=== PATIENT | female | born 1960 | race Caucasian/White ===

== ENCOUNTER → 2017-03-09 | Outpatient (CLI) | payer OTHER ==
[~2017-03-09] MED LIST: CIPR-255 PO; LISI-461 PO; ONDA4TAB7 SL
--- NOTE | 2017-03-10 12:10 | MAMMOGRAPHY REPORT ---
BILATERAL DIGITAL SCREENING MAMMOGRAM TOMOSYNTHESIS WITH CAD: 03/09/2017 CLINICAL HISTORY: Routine screening. Patient has no complaints. TECHNIQUE: Breast tomosynthesis in addition to standard 2D mammography was performed. Current study was also evaluated with a Computer Aided Detection (CAD) system. COMPARISON: Comparison is made to exams dated: 03/08/2016 mammogram, 03/04/2015 mammogram, 08/28/2013 ma mmogram, 08/17/2013 mammogram, 08/16/2012 mammogram - [facility], and 06/13/2009 ma mmogram. BREAST COMPOSITION: The tissue of both breasts is almost entirely fatty. FINDINGS: There are stable intramammary lymph nodes in each upper outer quadrant. No suspicious mass , architectural distortion or cluster of microcalcifications is seen. IMPRESSION: ACR BI-RADS CATEGORY 1: NEGATIVE There is no mammographic evidence of malignancy. A 1 year screening mammogram is recommended. The pa tient will receive written notification of the results. Approximately 10% of breast cancers are not detected with mammography. A negative mammographic report should not delay biopsy if a clinically suggestive mass is present. Nica Woodson M.D. ay/:03/09/2017 16:26:28 Area Coordinator: Anali SHARP(Lauryn)(Sigifredo), [facility] letter sent: Normal 1/2 BI-RADS Code: ACR BI-RADS Category 1: Negative
== END | disposition home or self-care (01) ==
LOC: C.MAMM 13:41
PROVIDERS: ATTEND Family Medicine
DX: Z12.31 Encounter for screening mammogram for malignant neoplasm of breast (principal)

== ENCOUNTER → 2018-03-10 | Outpatient (CLI) | payer OTHER ==
--- NOTE | 2018-03-13 07:44 | MAMMOGRAPHY REPORT ---
BILATERAL DIGITAL SCREENING MAMMOGRAM TOMOSYNTHESIS WITH CAD: 03/10/2018 CLINICAL HISTORY: Routine screening. Patient has no complaints. TECHNIQUE: The study was acquired using full field digital technology and interpreted from soft copy. Breast tomosynthesis in addition to standard 2D mammography was performed. Current study was also ev aluated with a Computer Aided Detection (CAD) system. COMPARISON: Comparison is made to exams dated: 03/09/2017 mammogram, 03/08/2016 mammogram, 03/04/2015 m ammogram, 08/28/2013 mammogram, 08/17/2013 mammogram, and 08/16/2012 mammogram - [facility]. BREAST COMPOSITION: The tissue of both breasts is almost entirely fatty. FINDINGS: No suspicious masses, calcifications, or areas of architectural distortion are noted in either breast . There has been no significant interval change compared to prior exams. IMPRESSION: ACR BI-RADS CATEGORY 1: NEGATIVE There is no mammographic evidence of malignancy. A 1 year screening mammogram is recommended.( 019) The patient will receive written notification of the results. Some breast cancers are not detected with mammography. A negative mammographic report should not stacy y biopsy if a clinically suggestive mass is present. Ema Davis M.D. ah/:03/10/2018 13:29:09 Communications Professor: RT Marco(Lauryn)(M)(BD), [facility] letter sent: Normal 1/2 BI-RADS Code: ACR BI-RADS Category 1: Negative
== END | disposition home or self-care (01) ==
LOC: C.MAMM 12:20
PROVIDERS: ATTEND Family Medicine
DX: Z12.31 Encounter for screening mammogram for malignant neoplasm of breast (principal)

== ENCOUNTER 2025-07-31 07:07 | Observation (INO) ==
--- NOTE | 2025-06-27 10:03 | PAT Medication Instructions ---
Medication Instructions Date of Service June 27, 2025 Home Medications Medication Instructions Recorded levothyroxine 88 mcg tablet 88 mcg PO DAILY #90 tabs 04/13/23 diclofenac sodium 75 mg 75 mg PO BID #60 tabs 06/24/25 tablet,delayed release lisinopril 20 mg-hydrochlorothiazide 25 mg tablet (Zestoretic) 1 tab PO QAM levothyroxine 88 mcg tablet 88 mcg PO DAILY multivitamin 1 tab PO DAILY diclofenac sodium 75 mg tablet,delayed release 75 mg PO BID ASK your surgeon for instructions diclofenac sodium 75 mg tablet,delayed release 75 mg PO BID DO NOT take the morning of surgery lisinopril 20 mg-hydrochlorothiazide 25 mg tablet (Zestoretic) 1 tab PO QAM multivitamin 1 tab PO DAILY Take morning of surgery With a small sip of water, OTHERWISE NOTHING TO EAT OR DRINK AFTER MIDNIGHT: levothyroxine 88 mcg tablet 88 mcg PO DAILY Other Notes If you have any questions please call us at [phone] or [phone] or [phone] or [phone]
--- NOTE | 2025-07-08 14:22 | Anesthesiology Consultation ---
Date of Service July 08, 2025 Assessment & Plan (1) Encounter for pre-operative examination: Chart Review Chart Review: Acceptable Risk for Surgery and Patient seen in Pre Admission Testing - Patient is not an ideal OPJ candidate (currently 23 hour obs) Per PAT appt on 07/08/25, no recent illness/disease exposures, illness related symptoms, or recent illness/disease positive tests. Will leave to surgeon's discretion if preop Covid testing needed Teaching & Discussion Pre-Anesthesia Teaching/Discussion Notes: Instructed NPO after midnight before surgery,except medications with 15 cc of water. Medication instructions provided according to the [facility] guidelines. History Surgery Operation Date: 07/31/25 10:40 Proposed Procedures p Left Total Knee Arthroplasty - Prosper Alfaro MD Height/Weight Height: 5 ft 4 in Weight: 129.7 kg Allergies Allergy/AdvReac Type Severity Reaction Status Date / Time meperidine [From Demerol] Allergy Unknown Hives Verified 06/27/25 08:54 Medications Home Medications Medication Instructions Recorded Confirmed Last Taken lisinopril 20 1 tab PO QAM 05/21/20 06/27/25 Unknown mg-hydrochlorothiazide 25 mg tablet (Zestoretic) levothyroxine 88 mcg tablet 88 mcg PO DAILY #90 tabs 04/13/23 06/27/25 Unknown multivitamin 1 tab PO DAILY 04/13/23 06/27/25 Unknown diclofenac sodium 75 mg 75 mg PO BID #60 tabs 06/24/25 06/27/25 Unknown tablet,delayed release Past Medical History Medical History Arthralgia DJD (degenerative joint disease) History of COVID-19 (2020) resolved HTN (hypertension) Hypothyroidism Exercise / Class Metabolic Activity II 4-5 Yardwork/Stairs/Walk up hill (one flight of stairs - no chest pain or SOB ) Past Family History Family History Father Heart disease Myocardial infarction Grandmother (Maternal) Heart disease Grandfather (Maternal) Kidney disease Mother Cancer Hypertension Heart disease Aunt Breast cancer Brother Hypertension Myocardial infarction Past Surgical History Surgical History Ganglion cyst excision H/O knee surgery meniscus repair H/O: hysterectomy Patient had uterus removed, still has tubes and ovaries. Past Anesthesia History No Hx of Anesthesia Complications (with exception to PONV ) and No Family Hx of Anesthesia Complications History of PONV History of PONV (improved with scop patch with past surgeries ) and Hx of Motion Sickness Social History Smoking Status: Never smoker Do You Dip or Chew Tobacco: No Hx Alcohol Use: No Hx Substance Use: No substance use type: does not use Review of Systems Patient denies chest pain, shortness of breath, dyspnea on exertion, reflux, cough, wheezing, palpitations. No hx of seizures, stroke, PR, apnea/snoring. No hx of blood clots or blood transfusions Physical Exam Vital Signs VITALS BP 131/87 P 79 TEMP 98.1 SP02 95% on RA RESP 16 Constitutional no acute distress ENMT Mouth: + small oral opening; no TMJ clicking Thyromental Distance: > or= 3.5 Finger Breadths (3.5) Mallampati Class: IV Neck neck extension not limited Respiratory normal respiratory effort; no respiratory distress Auscultation: lungs clear to auscultation bilaterally; no wheezes Cardiovascular Rate/Rhythm: regular rate and regular rhythm Heart Sounds: no murmur Vessels: no carotid bruit Musculoskeletal Spine: no pain with cervical ROM Extremities: extremities normal to inspection Psychiatric Orientation: alert Lab Results Anesthesia Preop Results Results Anesthesia Widget: WBC 7.43 K/ul (4.8-10.8) 07/08/25 Hgb 14.2 g/dL (12.0-16.0) 07/08/25 Hct 42.0 % (37.0-47.0) 07/08/25 Plt 295 K/uL (130-400) 07/08/25 Na 139 mmol/L (136-145) 07/08/25 K 4.3 mmol/L (3.5-5.1) 07/08/25 Cl 102 mmol/L (98-107) 07/08/25 CO2 30 mmol/L (21-32) 07/08/25 BUN 21 mg/dl (6-23) 07/08/25 Creat 0.76 mg/dl (0.6-1.2) 07/08/25 Glucose Level 84 mg/dl (70-99(Fasting)) 07/08/25 PT 10.0 Seconds (9.0-12.0) 07/08/25 PTT 28 Seconds (21-31) 07/08/25 INR 0.9 (0.9-1.1) 07/08/25 Blood Type O Positive 07/08/25 Antibody Screen NEGATIVE 07/08/25 Testing Electrocardiogram Date: 07/08/25 Findings: + NSR @ (75bpm) Low voltage QRS When compared to EKG from January 10, 2012- no significant change was found per cardio Chest X-Ray Date: 07/08/25 Findings: + NAD FINDINGS: Stable mild cardiomegaly without pulmonary vascular congestion. No consolidation or pleural effusion.
--- NOTE | 2025-07-23 17:18 | History & Physical Report ---
Date of Service July 23, 2025 Assessment & Plan (1) Left knee DJD: 64-year-old female with multiple medical comorbidities including hypertension, obesity and hypothyroidism with advanced bilateral knee DJD left side more symptomatic than the right. She has failed conservative treatment like to have her left knee replaced. Plan: We are going to take her to the operating room and do a left knee replacement. Risks and benefits procedure explained. Informed consent was obtained. Will use aspirin for DVT prophylaxis. She is planning on using home health. (2) Right knee DJD: (3) Hypothyroidism: (4) Obesity: (5) Hypertension: History of Present Illness Chief Complaint: . Bilateral knee pain discomfort left side greater than the right. 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 She has long history of bilateral knee pain discomfort. She had a left knee scope done about 10 years ago. Over the years she developed increased pain discomfort that has been unresponsive conservative care more lately. Shots become less effective. There function is limited by her pain. She now looks to having her knees replaced.. Allergies Allergy/AdvReac Type Severity Reaction Status Date / Time meperidine [From Demerol] Allergy Unknown Hives Verified 06/27/25 08:54 Home Medications Medication Instructions Recorded Confirmed Type lisinopril 20 1 tab PO QAM 05/21/20 06/27/25 History mg-hydrochlorothiazide 25 mg tablet (Zestoretic) levothyroxine 88 mcg tablet 88 mcg PO DAILY #90 tabs 04/13/23 06/27/25 Rx multivitamin 1 tab PO DAILY 04/13/23 06/27/25 History diclofenac sodium 75 mg 75 mg PO BID #60 tabs 06/24/25 06/27/25 Rx tablet,delayed release Past Med/Surg History Problem List Encounter for pre-operative examination Arthralgia Right knee DJD Left knee DJD Hypothyroidism Obesity Hypertension Medical History DJD (degenerative joint disease) Arthralgia History of COVID-19 (2020) resolved Hypothyroidism HTN (hypertension) Surgical History H/O: hysterectomy Patient had uterus removed, still has tubes and ovaries. 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 Physical Exam . Physical examination reveals a pleasant middle-age female but looks in pretty good health. Examination of both knees reveal patient ambulates well little bit of a waddling gait. She does limp a little bit more on the left side than the right. Examination left knee reveals a varus alignment to her knee. Moderate soft tissue envelope. She is tender over the medial joint line. Range of motion is 5-1 20. No pain with hip motion. Examination the right knee reveals a similar varus deformity. Moderate soft tissue envelope. Minimal tenderness to palpation. Got a little bit of bony perching medially. Range of motion 5-1 25. No instability. No pain with hip motion. Constitutional WD/WN, vitals as above Respiratory normal respiratory effort, lungs clear to auscultation Cardiovascular RRR, no murmur, no edema Gastrointestinal (Abdomen) normal bowel sounds, soft, nontender, no hepatosplenomegaly Results & Data Results & Data Laboratory Results . Diagnostic Findings . X-rays of the left knee reviewed. She has advanced left knee DJD. She has got complete loss of medial joint space. She got subchondral sclerosis. She has got varus alignment to the knee. She got fairly similar deformity and arthritic change in the right knee as well. PG Care Time/CCT Total # of Minutes Spent Total Time Spent with Patient: Total time spent is greater than 50% in coordination of care (as documented) at patient's floor/unit and/or counseling patient: Coding Level of Care Code None Diagnoses Left knee DJD M17.12 Right knee DJD M17.11 Hypothyroidism E03.9 Obesity E66.9 Hypertension I10
[~2025-07-31 07:07] MED LIST changes: -CIPR-255 PO; -LISI-461 PO; -ONDA4TAB7 SL; +PROPOFOL IV EMULSION 10 MG/ML 100 ML VIAL IV ONE
[2025-07-31] MEDS ORDERED: BUPIVACAINE 0.5 % 5 MG/1 ML PF 10ML VIAL ONE (07:11)
[2025-07-31] MEDS ORDERED: ROPIVACAINE 0.5% 5 MG/ML 30 ML VIAL ONE (07:11)
[2025-07-31] MEDS ORDERED: LIDOCAINE 2% 2 ML VIAL/AMP(20MG/ML) INFIL ONE (07:13)
[2025-07-31] MEDS ORDERED: MIDAZOLAM HCL 1 MG/ML 2ML VIAL ONE (07:25)
[2025-07-31] MEDS: LR 500ML BOLUS, THEN 15ML/HR IV SCH (07:58)
[2025-07-31] MEDS: METOCLOPRAMIDE HCL 10 MG TABLET PO SCH (07:59)
[2025-07-31] MEDS: dexAMETHasone**PF** 10 MG/ML VIAL IV SCH (07:59)
[2025-07-31] MEDS: ACETAMINOPHEN 500 MG TAB PO SCH ×2 (07:59→14:09)
[2025-07-31] MEDS: CeleBREX 200 MG CAP PO SCH (07:59)
[2025-07-31] MEDS: FAMOTIDINE 20 MG TAB PO SCH (07:59)
[2025-07-31] MEDS: LR 60ML/HR IV SCH (08:00)
--- NOTE | 2025-07-31 08:53 | History & Physical Bridge Note ---
Date of Service July 31, 2025 History & Physical Bridge Note I have examined the patient, reviewed the History & Physical and in the interval since the performance of the History & Physical I have noted the following changes of clinical significance: no changes noted
[2025-07-31] MEDS: ceFAZolin 3000MG 3,000 MG/72.5 ML BAG IV SCH (09:24)
[2025-07-31] MEDS ORDERED: GLYCOPYRROLATE 0.2 MG/ML VIAL ONE (09:39)
[2025-07-31] MEDS: ROPIV 0.5% 246mg, Ketorolac 30mg, EPINEPHrine 0.5mg in NSS INFIL SCH (10:01)
[2025-07-31] MEDS: ORTHO JOINT ANESTHETIC ONE (10:02)
[2025-07-31] MEDS ORDERED: ePHEDrine sulfate 50 MG/5 ML SYR ONE (10:09)
[2025-07-31] MEDS ORDERED: ONDANSETRON INJ 2 MG/ML 2 ML VIAL ONE (10:55)
--- NOTE | 2025-07-31 11:17 | Operative Report ---
PG Post Operative Report Pre & Post Diagnosis Operation Date: 07/31/25 08:55 Pre-Op Diagnosis: Left Knee Osteoarthritis Post-Op Diagnosis: Left Knee Osteoarthritis I identified the patient and participated in the time-out.: Yes Procedure Operation Date: 07/31/25 08:55 Actual Procedures p Left Total Knee Arthroplasty, Cemented(Left) - Prosper Alfaro MD Surgeon Prosper Alfaro MD Edgerman Margarito Duarte PA-C Estimated Blood Loss 50 Findings Consistent with Post-Op Diagnosis Specimens Left knee send pathology Anesthesia Type Spinal MAC Complications none Disposition Accompanied Patient To Recovery: No Indications The patient is a 64-year-old female with a history of increasing left knee pain discomfort gradually got worse over time. She does have a history of a knee scope done about 10 years ago which provided temporary relief. That she been through extensive conservative treatment became less successful over time. She is now elected proceed with left total knee arthroplasty. Description of Procedure Operative implants consist of: 1 Biomet Vanguard size 62.5 left posterior stabilized femoral component. 2 Biomet size 67 tibial tray. 3. 10 mm posterior stabilized polyethylene insert. 4. 31 x 8 all poly patella. The patient was taken to the op room, identified, placed on the operating table in the supine position. All contact areas were appropriately padded. IV antibiotics were provided by anesthesia team. Spinal anesthetic and adductor canal block had been provided in the holding area. A Saha catheter was placed in sterile fashion to the left phytate was then placed. The left lower extremity was then prepped and draped in usual sterile fashion. The left leg was elevated and exsanguinated with use of an Esmarch and tourniquet placed at 300 mmHg. An anterior approach left knee was then performed to longitudinal incision centered over the patella. Sharp dissection was Through subcutaneous tissue down to the extensor mechanism. A medial parapatellar arthrotomy incision was made. Some subperiosteal dissection was carried out medially. The fat pad was dissected released patella tendon. Lateral patellofemoral ligament was released and the patella subluxate laterally. The osteophytes were taken off distal femur. The ACL and PCL were then released from distal femur and the tibia subluxate anteriorly. The external tibial LYMErix then placed on the interface the tibia and adjusted 14 mm medially. Proximal tibial cut was made remove about 2 mm of bone from the medial side. Some osteophytes were taken off medially. The tibia sized to a size 67. Attention then drawn the femur. The distal femur was then with a sharp drill. Intramedullary canal was suction. A left 5 degree valgus cutting guide was placed for the distal femoral cutting block was pinned in place. Distal femoral cut was made take an additional 3 mm of bone off distal femur. The femur was then sized to a size 62.5. The AP cutting block was pinned parallel to the epicondylar axis which was 5 degrees of external rotation. The anterior cut, anterior chamfer, posterior cut, posterior chamfer cuts were made. The box cutting guide was then placed in the just slightly lateral and the box cut was made. The knee was flexed. The remnants of the medial lateral menisci were excised. The osteophytes taken off the posterior aspect of femur. A trial femoral component was placed. The tibial tray was pinned in [place] external rotation and the drill and stem punch were used to create defect in the proximal tibia for the tibial tray. The knee was then trialed and the 10 mm insert fit most appropriately. Attention drawn to the patella. The patella was cleaned of all soft tissues. Patella thickness measured 19 mm in thickness was cut down to 13. Was sized to a size 31 patella. The lug holes were drilled for 31 patella. The lateral osteophytes removed. Patella button was placed. Knee was taken through range of motion patella tracked nicely with no thumbs test. Attention then drawn to placement permanent components. All trial components were removed. Bone plug was placed into distal femoral limb blood loss. Double batch Palacos G cement was mixed. Biomet Vanguard size 62.5 left posterior stabilized femoral component, size 67 tibial tray, a 10 mm pro stabilized polyethylene insert, and a 31 x 8 all poly patella then cemented in place. The knee was brought out into full extension till cement hardened. Final cement check was then performed. Pericapsular tissues were injected with total 100 cc of Ortho mix. The patient did receive 1 g tranexamic acid. The tourniquet was then let down for final tourniquet time was 61 minutes. Hemostasis assured use electrocautery. Extensor Meclomen closed with combination 1 PDS suture #1 Vicryl suture in a [id number] fashion. Extensor Meclomen checked found intact the subcutaneous tissue then closed with 2 Dexon suture in a buried interrupted fashion skin was closed skin nissa. Leg was then cleaned and dried and a sterile dressing with Xeroform, 4 fours, sterile cast padding, Syed bandage were applied. The patient was then transferred to the recovery room in stable condition. Patient tolerated procedure well and there are no complications. Margarito Duarte, my physician assistant attorney general, was present for the entire procedure. His assistance was essential and required for appropriate patient positioning, prepping and draping, surgical exposure, performing the technical details of the operation, placement the implants, closure of the wound, and placement of the sterile bandage. I attest to the content of the Intraoperative Record and any orders documented therein. Any exceptions are noted below.
--- NOTE | 2025-07-31 11:29 | XRay Report ---
XR knee LT 1 or 2V routine CLINICAL HISTORY: Postoperative evaluation. COMPARISON: Left knee radiographs June 10, 2025. FINDINGS: Alignment of the total left knee arthroplasty is anatomic. There is no periprosthetic frac ture or unexpected radiopaque foreign body. There are skin nissa. IMPRESSION: Expected findings following total left knee arthroplasty. ACT 112: Negative or not required by law. Electronically signed by: Rubio Hall M.D. 07/31/2025 11:27 AM
[2025-07-31] MEDS ORDERED: HYDROmorphone INJ 0.5 MG/0.5 ML SYR IV PRN (12:44)
[2025-07-31] MEDS ORDERED: ONDANSETRON INJ 2 MG/ML 2 ML VIAL IV PRN (12:44)
[2025-07-31] MEDS ORDERED: NALOXONE HCL 0.4 MG/1 ML VIAL/CARP IV PRN (12:44)
[2025-07-31] MEDS ORDERED: METOCLOPRAMIDE HCL INJ 5 MG/ML 2 ML VIAL IV PRN (12:44)
[2025-07-31] MEDS ORDERED: ALUMINUM/MAGNESIUM SUSP 30 ML UDC PO PRN (12:44)
[2025-07-31] MEDS ORDERED: MAGNESIUM HYDROXIDE SUSP 30 ML UDC PO PRN (12:44)
--- NOTE | 2025-07-31 13:19 | Anesthesiology Progress Note ---
Date of Service July 31, 2025 Anesthesia Post Procedure Vital Signs Vital Signs: Temp Pulse Pulse Resp BP Pulse Ox O2 Del Method 07/31/25 13:15 94 H 12 127/77 98 Room Air 07/31/25 12:55 85 12 122/79 96 Room Air 07/31/25 12:40 91 H 12 114/72 95 Room Air 07/31/25 12:25 74 17 128/90 94 Room Air 07/31/25 12:10 88 12 136/73 98 Room Air 07/31/25 11:55 36.5 C 87 15 128/70 95 Room Air 07/31/25 11:45 88 15 120/66 92 Room Air 07/31/25 11:35 87 20 130/62 94 Room Air 07/31/25 11:25 87 19 144/68 H 93 Room Air 07/31/25 11:18 36.5 C 92 H 20 125/64 94 Room Air 07/31/25 08:17 36.9 C 85 18 150/97 H 96 Room Air Transfer of Care Handoff Completed per policy Notes Mental Status: alert / awake / arousable Patient Amnestic to Procedure: Yes Nausea / Vomiting: adequately controlled Pain: adequately controlled Airway Patency, RR, SpO2: stable & adequate BP & HR: stable & adequate Hydration State: stable & adequate Anesthetic Complications: no major complications apparent and Pt Satisfied with anesthetic care
[2025-07-31] MEDS: SODIUM CHLORIDE 0.9% 1,000 ML IV SCH (14:08)
[2025-07-31] MEDS: KETOROLAC TROMETHAMINE 15 MG/ML VIAL IV SCH (14:09)
[2025-07-31] MEDS: ASCORBIC ACID 500 MG TAB PO SCH (16:34)
[2025-07-31] MEDS: TRANEXAMIC ACID / 0.7% NACL 1,000 MG/100 ML BAG IV SCH (16:37)
[2025-07-31] MEDS ORDERED: SENNA 8.6 MG TAB PO SCH (21:00)
[2025-07-31] MEDS: SENNA 8.6 MG TAB PO SCH (21:52)
[2025-07-31] MEDS: DOCUSATE SODIUM 100 MG CAP PO SCH (21:52)
[2025-07-31] MEDS: ASPIRIN 81 MG ECTAB PO SCH (21:53)
[2025-08-01] MEDS: LEVOTHYROXINE SODIUM 88 MCG TABLET PO SCH (05:40)
[2025-08-01 06:47] LABS: Hematocrit (blood only) 37.6 % (37.0-47.0); Hemoglobin 12.7 g/dL (12.0-16.0); Mean Corpuscular Hemoglobin 30.5 pg (25.0-34.0); Mean Corpuscular Volume 90.4 fL (80.0-100.0); Platelet Count 252 K/uL (130-400); RDW Standard Deviation 42.5 fL (36.4-46.3); Red Blood Count 4.16 M/uL (4.20-5.40); White Blood Count 13.42 K/ul (4.8-10.8)
[2025-08-01 07:20] LABS: Anion Gap 9.0 (3-11); Blood Urea Nitrogen 16.0 mg/dl (6-23); Calcium 9.2 mg/dl (8.6-10.3); Carbon Dioxide 26.0 mmol/L (21-32); Chloride 103.0 mmol/L (98-107); Creatinine Clr Calc Pharmacy 94.6 ml/min; Glucose 109.0 mg/dl (70-99(Fasting)); Potassium 4.2 mmol/L (3.5-5.1); Sodium 138.0 mmol/L (136-145)
[2025-08-01 08:04] VITALS: BP 141/86; PULSE 81; RESP 16; TEMP 98.2; O2SAT 95
[2025-08-01] MEDS: MULTIVITAMIN TAB PO SCH (08:30)
[2025-08-01] MEDS: dexAMETHasone 10 MG in SYRINGE 0 ML IV SCH (08:30)
[2025-08-01] MEDS: LISINOPRIL/HCTZ 20/25MG 1 TAB PO SCH (08:47)
--- NOTE | 2025-08-01 10:13 | Orthopedic Progress Note ---
Date of Service August 01, 2025 Assessment & Plan (1) Status post total left knee replacement: * Continue Current Treatment * Disposition: home * Daily treatment: Physical Therapy/ Occupational Therapy per protocol * Weight bearing status: WBAT * Continue to monitor for ABLA * Pain control * DVT prophylaxis, ASA * Office/hospital f/u 2 weeks for progress check and staple/suture removal * Plan for discharge today pending PT/OT clearance Subjective . Active Problems: S/p left TKA POD 1 64 y/o female s/p left TKA. Doing well overall, pain managed and improved function. Denies fever/chills, chest pain/SOB, nausea/vomiting. Otherwise no complaints. Review of Systems All systems reviewed & are unremarkable except as noted in HPI & below. Physical Exam . * General: Alert and oriented, no acute distress * Constitutional: well-developed, well-nourished. * Respiratory: Normal respiratory effort, no distress * Gastrointestinal: No tenderness to palpation, no rigidity or guarding. * Skin: No rash or lesion. * Neurologic: Grossly normal * Musculoskeletal: left knee surgical dressing CDI, not removed for exam. Otherwise no obvious deformity or overlying skin changes RLE. Diffuse TTP distal thigh and knee region. Otherwise no specific tenderness of proximal thigh, lower leg, foot/ankle. AROM knee flexion 100 degrees. AROM foot/ankle intact. Sensation intact plantar/dorsal foot. Brisk capillary refill. Results & Data Results & Data Laboratory Results . Diagnostic Findings . Knee X-Ray 07/31/25 11:15 XR knee LT 1 or 2V routine CLINICAL HISTORY: Postoperative evaluation. COMPARISON: Left knee radiographs June 10, 2025. FINDINGS: Alignment of the total left knee arthroplasty is anatomic. There is no periprosthetic fracture or unexpected radiopaque foreign body. There are skin nissa. IMPRESSION: Expected findings following total left knee arthroplasty. ACT 112: Negative or not required by law. Electronically signed by: Rubio Hall M.D. 07/31/2025 11:27 AM PG Care Time/CCT Total # of Minutes Spent Total Time Spent with Patient: Total time spent is greater than 50% in coordination of care (as documented) at patient's floor/unit and/or counseling patient: Coding Level of Care Code 41723 Post Operative Follow-Up Diagnoses Status post total left knee replacement Z96.652
== END 2025-08-01 10:00 | disposition home health service (06) ==
LOC: 3E 07:07 → ASU 07:07